=== PATIENT | male | born 2005 | race Caucasian/White ===

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

== ENCOUNTER 2023-10-31 09:22 | Outpatient (CLI) | payer OTHER, SELFPAY ==
--- NOTE | ~2023-10-31 | MR_ITS ---
EXAMINATION: MR chest wo con DATE: 10/31/2023 10:22 INDICATION: Rupture of right pectoralis major muscle. TECHNIQUE: Magnetic resonance imaging (MRI) of the right chest was performed without intravenous cont rast. COMPARISON: None. FINDINGS: Bone alignment is normal. No fracture. There is degenerative cystic change in greater tuber osity of proximal humerus. The musculature is normal. IMPRESSION: 1. Normal right pectoralis major muscle. Reviewed, dictated and finalized at location A.
== END 2023-10-31 09:23 ==
LOC: GOSHIMG 09:24
PROVIDERS: PCP Family Medicine; Visit Provider Physician Assistant
DX: S29.011A Strain of muscle and tendon of front wall of thorax, initial encounter (principal); X58.XXXA Exposure to other specified factors, initial encounter
CPT/HCPCS: 71550